=== PATIENT | male | born 1975 | race Caucasian/White ===

== ENCOUNTER 2018-11-27 21:42 | Emergency (ER) | payer MEDICAID, OTHER ==
[2018-11-27 22:02] VITALS: RESP 20
--- NOTE | 2018-11-27 22:47 | C.PDOC ---
History Of Present Illness Patient presents with sudden onset of left flank pain radiating to the groin. Denies fever, chills, or dysuria. Patient has Hx of kidney stone, last time was 9 years ago and states it feels the same. Time Seen by Provider: 11/27/18 22:46 Chief Complaint (Nursing): Abdominal Pain History Per: Patient History/Exam Limitations: no limitations Onset/Duration Of Symptoms: Sudden Onset Current Symptoms Are (Timing): Still Present Severity: Moderate Pain Scale Rating Of: 6 Location Of Pain/Discomfort: Other (Left flank) Quality Of Discomfort: Unable To Describe Associated Symptoms: denies: Fever, Chills Exacerbating Factors: None Alleviating Factors: None Recent travel outside of the [place]: No Past Medical History Reviewed: Historical Data, Nursing Documentation, Vital Signs Vital Signs: Last Vital Signs Temp 99.1 F 11/27/18 21:57 Pulse 121 H 11/27/18 21:57 Resp 20 11/27/18 21:57 BP 160/126 H 11/27/18 21:57 Pulse Ox 95 11/27/18 21:57 Primary Care Provider: Bharti Dc I - Medical History PMH: HTN Family History: States: No Known Family Hx - Social History Hx Tobacco Use: No Hx Alcohol Use: No Hx Substance Use: No - Immunization History Hx Tetanus Toxoid Vaccination: No Hx Influenza Vaccination: No Hx Pneumococcal Vaccination: No Review Of Systems Constitutional: Negative for: Fever, Chills Cardiovascular: Negative for: Chest Pain, Palpitations Respiratory: Negative for: Cough, Shortness of Breath Gastrointestinal: Negative for: Nausea, Vomiting Genitourinary: Negative for: Dysuria Musculoskeletal: Positive for: Other (Left flank pain) Neurological: Negative for: Weakness, Numbness Physical Exam - Physical Exam Appears: Non-toxic Skin: Warm, Dry Head: Normacephalic Oral Mucosa: Moist Neck: Trachea Midline, Supple Chest: Symmetrical, No Tenderness Cardiovascular: Rhythm Regular Respiratory: No Rales, No Rhonchi, No Wheezing Gastrointestinal/Abdominal: Soft, No Tenderness Back: Other (Left flank tenderness) Neurological/Psych: Oriented x3 ED Course And Treatment - Laboratory Results Result Diagrams: 11/27/18 23:15 11/27/18 23:15 O2 Sat by Pulse Oximetry: 95 (Room air) Pulse Ox Interpretation: Normal Progress Note: Blood work and urinalysis ordered. IV fluids, protonix, and toradol administered. pt does not want to be admitted. 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 Will return if symptoms recur. Understands the risks as I've explained at length Reevaluation Time: 02:00 Reassessment Condition: Improved Medical Decision Making Medical Decision Making: Upon provider reevaluation patient is feeling better, is medically stable, and requires no further treatment in the ED at this time. Patient will be discharged home with Rx for tramadol. flomax . Counseling was provided and all questions were answered regarding diagnosis and need for follow up with dr yanez. There is agreement to discharge plan. Return if symptoms persist or worsen. Disposition Counseled Patient/Family Regarding: Studies Performed, Diagnosis, Need For Followup, Rx Given - Disposition Referrals: Bharti Dc MD [Staff Provider] - Venkata Yanez MD [Staff Provider] - Disposition: HOME/ ROUTINE Disposition Time: 22:46 Condition: FAIR Additional Instructions: Please return if symptoms recur Prescriptions: Tamsulosin [Flomax] 0.4 mg PO DAILY #14 cap traMADol [Ultram] 50 mg PO QID PRN #20 tab PRN Reason: Pain, Severe (8-10) Instructions: Renal Colic (DC), Kidney Stones (DC), Kidney Stone Diet Forms: [facility] (Algerian) - Clinical Impression Clinical Impression: Kidney stone on left side, Renal colic on left side - Scribe Statement The provider has reviewed the documentation as recorded by the Scribe Jacques Salcido All medical record entries made by the Scribe were at my direction and personally dictated by me. I have reviewed the chart and agree that the record accurately reflects my personal performance of the history, physical exam, medical decision making, and the department course for this patient. I have also personally directed, reviewed, and agree with the discharge instructions and disposition.
[2018-11-27] MEDS ORDERED: Sodium Chloride 0.9% 1,000 ML IV ONE (22:49)
[2018-11-27 23:18] LABS: BASO # 0.1 K/uL (0.0-0.2); BASO % 0.8 % (0.0-2.0); EOS # 0.2 K/uL (0.0-0.7); EOS % 1.6 % (0.0-4.0); HEMOGLOBIN 15.9 g/dL (12.0-18.0); LYMPH # 2.6 K/uL (1.0-4.3); LYMPH % 19.2 % (20.0-40.0); MEAN CELL VOLUME 84.8 fL (80.0-94.0); MEAN CORPUSCULAR HEMOGLOBIN 29.5 pg (27.0-31.0); MEAN CORPUSCULAR HGB CONC 34.8 g/dL (33.0-37.0); MEAN PLATELET VOLUME 7.7 fL (7.2-11.7); MONO # 1.1 K/uL (0.0-0.8); MONO % 7.9 % (0.0-10.0); NEUT # 9.4 K/uL (1.8-7.0); NEUT % 70.5 % (50.0-75.0); NRBC % 0.1 % (0.0-2.0); RBC 5.4 Mil/uL (4.40-5.90); RED CELL DISTRIBUTION WIDTH 14.2 % (11.5-14.5); WHITE BLOOD COUNT 13.3 K/uL (4.8-10.8)
[2018-11-27 23:30] LABS: ALB/GLOB RATIO 1.4 (1.0-2.1); ALBUMIN 4.3 g/dL (3.5-5.0); ALT/SGPT 53 U/L (21-72); AST/SGOT 44 U/L (17-59); BLOOD UREA NITROGEN 16 mg/dL (9-20); CALCIUM 9.3 mg/dl (8.6-10.4); GFR NON-AFRICAN AMERICAN > 60; LIPASE 92 U/L (23-300)
[2018-11-27 23:38] LABS: URINE BACTERIA OCC (<OCC); URINE BILIRUBIN NEGATIVE (NEGATIVE); URINE BLOOD 3+ (NEGATIVE); URINE CLARITY Hazy (Clear); URINE COLOR Yellow (YELLOW); URINE GLUCOSE (UA) NORMAL (Normal); URINE LEUKOCYTE ESTERASE NEG Leu/uL (Negative); URINE PROTEIN NEGATIVE (NEGATIVE); URINE UROBILINOGEN NORMAL mg/dL (0.2-1.0)
[2018-11-28] MEDS ORDERED: Morphine 4 MG/ML VIAL ONE (00:47)
[2018-11-28 01:41] VITALS: BP 147/98; PULSE 102; TEMP 97.8
[2018-11-28 02:02] VITALS: O2SAT 95
[2018-11-28] MEDS ORDERED: Oxycodone/Acetaminophen 5/325 mg Tab ONE (02:16)
[2018-11-28] MEDS ORDERED: Oxycodone/Acetaminophen 5/325 mg Tab PO STA (02:25)
--- NOTE | 2018-11-28 09:09 | CT ---
CT abdomen and pelvis HISTORY: Left flank pain. Comparison: None available. TECHNIQUE: Multiple contiguous axial images were performed through the abdomen and pelvis without the use of intravenous contrast. Subsequently, sagittal and coronal reformatted images were obtained. This CT exam was performed using one or more of the following dose reduction techniques: Automated exposure control, adjustment of the mA and/or kV according to patient size, and/or use of iterative reconstruction technique. FINDINGS: Mild atelectasis at the lung bases. Trace pericardial thickening. Fatty infiltration of the liver. 2 centimeter hyperattenuated focus adjacent to the gallbladder fossa in the medial right hepatic lobe which may represent focal fatty sparing. Gallbladder appears preserved. Spleen appears preserved. Adrenal glands appear preserved. Pancreas appears preserved. Small hiatal hernia. Few distended loops of small bowel seen within the left upper abdomen. Right kidney: No gross calculi or hydronephrosis. Left Kidney: Mild to moderate left hydroureteronephrosis with associated obstructing 6.6 millimeter calculus in the proximal left ureter. Associated perinephric fat stranding. 4.8 millimeter calculus in the upper pole of the left kidney. Urinary bladder is preserved. Prostate and seminal vesicles appear grossly preserved. Fecal retention in the colon. Colonic diverticulosis. Appendix is within normal limits. Few shotty para-aortic and inguinal lymph nodes. Few shotty mesenteric lymph nodes. Degenerative changes in the spine. Impression: 1. Mild to moderate left hydroureteronephrosis with associated 6.6 millimeter obstructing calculus in the proximal left ureter. Additional 4.8 millimeter calculus in the upper pole of the left kidney. Perinephric fat stranding. 2. Fatty infiltration of the liver. 2 centimeter hyperattenuated focus adjacent to the gallbladder fossa in the medial right hepatic lobe which may represent focal fatty sparing. Clinical correlation. Additional findings as above. These findings were preliminarily reported at 1:14 a.m. on 11/28/[address] Kevin Marx from [facility].
== END 2018-11-28 02:31 | disposition home or self-care (01) ==
LOC: C.ER 21:42
DX: N13.2 Hydronephrosis with renal and ureteral calculous obstruction (principal); Z87.442 Personal history of urinary calculi
CPT/HCPCS: 74176; 80053; 81001; 83690; 85025; 96361; 96374; 96375; 99285; C9113; J1885; J2270; J7030